=== PATIENT | female | born 1995 | race Caucasian/White ===

== ENCOUNTER 2021-10-08 07:30 | Inpatient (IN) | payer OTHER, SELFPAY ==
[2021-10-08] VITALS (57 sets, daily range): BP systolic 93–142; BP diastolic 53–87; PULSE 67–101; RESP 16; TEMP 36.3–36.9; O2SAT 96–100; BMI 25.7
[2021-10-08] MEDS: Lactated Ringers 1,000 ML 50 ML IV (08:15)
[2021-10-08 08:39] LABS: Absolute Lymphocyte Count 1.98 X10^3/uL (0.83-4.51); Absolute Neutrophil Count 6.2 X10^3/uL (2.0-7.7); Basophil# 0.05 X10^3/uL; Basophil% 0.6 % (0-1); Eosinophil# 0.09 X10^3/uL; Hematocrit 36.1 % (37-47); Hemoglobin 12.2 g/dL (12.0-15.0); Lymphocyte # 1.98 X10^3/ul (0.83-4.51); Lymphocyte % 21.9 % (19-41); Mean Corp Hgb Conc 33.8 g/dL (32-36); Mean Corpuscular Hgb 30.8 pg (27.0-32.0); Mean Corpuscular Volume 91.2 fL (81-99); Mean Platelet Vol. 11.4 fl (6.2-12.0); Monocyte% 6.6 % (0-10); NRBC Flagged by Analyzer 0 % (0-5); Neutrophil # 6.17 X10^3/uL (2.7-7.7); Neutrophil % 68.2 % (47-70); Platelet Count 166 K/mm3 (150-450); RBC Distribution Width CV 12.1 % (11.6-14.6); RBC Distribution Width SD 40.3 fl (35.1-43.9); Red Blood Count 3.96 M/mm3 (4.2-5.4)
[2021-10-08] MEDS: Oxytocin 30 units/NS 500 ml 30 UNITS/500 ML IV.SOLN IV (08:50)
--- NOTE | 2021-10-08 09:49 | PCM.HP.BLA ---
History and Physical Date of Admission: 10/08/21 OG ANTEPARTUM RECORD - HISTORY AND PHYSICAL (10/08/2021) Name: DENNYS PALACIOS History of this : This is a 26 year old [id number] presents at 40 wks + 1 days gestation presents for elective induction. OB Physician: Delonte Gramajo MD [place]'s Physician: [facility] ...................................................................... : 1995 Age: 26 Address: [address] [place] [address] Phone: ([phone] Insurance Carrier: [employer] [id number] Emergency Contact: OVIDIO PHILIP [phone] ...................................................................... Final CAROLYN: 10/07/21 By Ultrasound: 6 weeks 1 day PARITY: (G-Total Pregnancies P-Fullterm,Premature,Induced AB,Spont AB, Ectopics, Multiple,Living) CAROLYN CONFIRMATION: Final CAROLYN: 10/07/21 OB PROBLEM LIST: ALLERGIC TO PENICILLINS AND STEROIDS. Cause rash. 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 Plan to return in 2021. PNC in [facility] and [place] ALLERGIES: Cortisone Generalized rash Penicillins Rash MEDICATIONS: azithromycin 250 mg tablet 1 po today then 1 daily until gone 28 mg iron-800 mcg tablet One pill by mouth once a day Vitamin C 1,000 mg tablet One pill by mouth once a day Vitamin D3 50 mcg (2,000 unit) capsule One pill by mouth once a day SOCIAL HISTORY: Smoking - Never Alcohol Use - None Diet - balanced Diet, Drinks oat milk. Occ tea and Water intake- 120 oz. Lifestyle - recent relocation Exercise - Enc to walk 15-30 min daily Employer - [employer] Job Description - missionary worker Illicit Drug Use - None Sexual Activity - Place of - [place] Hours Worked - varies Spouse-Sig Other Name - Ovidio Spouse-Sig Other Occupation - missionary worker Spouse-Sig Other Phone No - [phone] Children Name(s) - Belinda PRIOR DELIVERY HISTORY DEL DATE GEST LAB WT LB WT OZ TYPE ANES LABOR TX 23 Apr 11 39 12 7 1 Vag Epidural No ANTEPARTUM FLOW CHART VISIT RTC FU F F UT U U DATE WK MD WKS HT PN HR M SS BP ED WT UT GL D EF ST __ ____ ___ __ __ ___ __ __ __ ___ __ __ __ ___ __ Sep JMW 6 38 V + + 128/80 0 166 - - [address] Sep JMW 1 37 V + + 120/74 0 163 - - S Sep JMW 1 37 V + + 109/76 0 162 ne ne Aug M 1 36 V + + 110/72 0 165 - - 18 Nov 36 JMW 1 36 V + + 106/74 0 162 - - 1 25 P ANTEPARTUM NOTE(S): Oct 06 2021: doing well, Good FM, induce per request Sep 29 2021: see note, Good FM Sep 22 2021: Good FM Sep 15 2021: Low Pressure, Good FM Sep 09 2021: GBS Today, LARC form signed,GoodFM COMPREHENSIVE ANTEPARTUM NOTE(S): Oct 08 2021: Scheduled for Induction for 10/08/21 with KATHY. Questions answered and consents signed. Spoke with Katya. JODI Oct 06 2021: Dennys is 39w6d positive movement. no edema. irregular contractions. She states she is doing well and would like to have her membranes sweeped today. BR Sep 29 2021: Dennys is here today for PNV. She is 38w6d, postive movement (States baby is less active but believes baby may just be runing out of room.) Pt reports some irregular contractions. Dennys also is concerned she may have a sinus infection. She tried mucinex with no releif. Her symptoms are green nasal drainage. Post nasal drip that causes her to have a sore throat. She is wondering if there is Sep 22 2021: Dennys is here w her at 37.6 w gest. feeling well. Baby active. First del at [facility] but she has seen the [facility] WP informational video. DRC. Sep 15 2021: No complaints. Preregistered already. Labor, ROM, FM precautions. GBS neg Sep 14 2021: H taken to OB. tkg Sep 09 2021: Dennys presents here today with spouse(Ovidio) for PNV as transfer of care from [facility] [place] and [place] to here. Presents at 36 weeks and plans at [facility] with CAROLYN of 10-07-21. GBS to be done today and LARC form signed and declined today in our Office. Good FM and reports occasional [place] Xie. Genetic screening forms filled out and all declined. JODI Aug 31 2021: TELEHEALTH NOB VISIT-- Dennys is a 26 yo G 2 P 1 with CAROLYN 10-07-21 planning a vag del at [facility] probably with an epidural using [facility] [place] for post disch ped care. Her is Ovidio. They have a 17 mo old daughter, Belinda born in [place] after a 12 hour labor and very short second stage. Dennys had an uneventful with her. They are missionary workers to [place] REVIEW OF SYSTEMS: GENERAL - Denies fever, or chills SKIN - Denies rash, new skin lesions, or change in moles EYES - Denies blurred vision, or change in visual acuity EARS - Denies ear pain, or difficulty hearing NOSE - Denies nasal congestion, discharge, or bleeding MOUTH - Denies sore throat, or difficulty swallowing NECK - Denies pain or swelling RESPIRATORY - Denies shortness of breath, cough, wheezing CARDIOVASCULAR - Denies palpitations, chest pain, orthopnea, PND, peripheral edema, syncope or claudication GASTROINTESTINAL - Denies nausea, vomiting, diarrhea, constipation, Denies abdominal pain, melena and or bright red blood GENITOURINARY - Denies dysuria, frequency of urination, urgency, or hesitancy MUSCULOSKELETAL - Denies joint or muscle pain, or back pain NEUROLOGICAL - Denies localized numbness, weakness, or tingling PSYCHIATRIC - Denies depression, anxiety, substance abuse or suicide attempts ENDOCRINE - Denies heat or cold intolerance, weight loss or gain, increasing thirst HEMATO-IMMUNOLOGIC - Denies easy bruising, bleeding, oral ulcerations or recurrent infections GENETICS SCREENING: Age 35+ years: No Thalassemia: No Neural Tube Defect: No Down Syndrome: No ZARINA-SACHS: No Sickle Cell Disease: No Hemophilia: No Musc. Dystrophy: No Cystic Fibrosis: No-declines screening Alli Chorea: No Mental Retardation: No Fragile X: No Other genetic: No Other defects: No SABs/still births: No Drugs since LMP: No INFECTION HISTORY: High risk AIDS: No High risk Hepatitis: No Exposed to TB: No Exposed to Herpes: No Rash/viral illness since LMP: No History of STD: No MENSTRUAL HISTORY: *Menses Regularity: RegularFrequency: monthlyBCP's at Conception: NoMenarche (Age Onset): 14* PAST SUMMARY: PARITY: 1. Total Pregnancies............ 2 2. Full Term Pregnancies........ 1 3. Premature.................... 0 4. Abortions - Induced.......... 0 5. Abortions - Spontaneous...... 0 6. Ectopics..................... 0 7. Multiple Births.............. 0 8. Living Children.............. 1 PAST #1: Date of :.................. 04/14/20 Gestation Weeks:................ 39 Length of labor(hours):......... 12 Sex:............................ F Weight-lbs:............... 7 Weight-oz:................ 1 Type of Delivery:............... Vag Type of Anesthesia:............. Epidural Place of Delivery:.............. [place] Treatment of Labor?:.... No Comment: ING HERNIA PHYSICAL EXAMINATION General Appearence: 26 yo female in no acute distress Vital Signs: AF, VSS Heart: RRR without rubs or gallops Lungs: CTA x 2 Breasts: deferred Abdomen: gravid Pelvis: Cervix: Presentation: cephalic Station: Fetus: Size: AGA Movement: present Heart: present LAB TEST(S) ORDERED SINCE:01/10/21 10/08/2021 TYPE AND SCREEN 10/08/2021 CBC W/DIFF, AUTOMATED 09/14/2021 TEST CODE CHANGE 09/14/2021 STREP GP B CULTURE 08/30/2021 PAP Smear 08/30/2021 Panel-Thyroid 08/30/2021 Initial OB Labs 08/30/2021 GC-Chlamydia 08/30/2021 CBC w/Diff 08/30/2021 36+ Week Labs 08/30/2021 24-35 Week Labs == ==== Order Observation Description Value Ref_Range A* Site == ==== Labor [facility]~[address] [place], [address]~ TYPE AND SCRE AB SCREEN GEL NEGATIVE ML CBC W/DIFF, AUT NOTE BLANCO CBC W/DIFF, AUT WBC 9.0 K/mm3 4.4-11.0 ML CBC W/DIFF, AUT RBC 3.96 M/mm3 4.2-5.4 L ML CBC W/DIFF, AUT HGB 12.2 g/dL 12.0-15.0 ML CBC W/DIFF, AUT HCT 36.1 37-47 L ML CBC W/DIFF, AUT MCV 91.2 fL 81-99 ML CBC W/DIFF, AUT MCH 30.8 pg 27.0-32.0 ML CBC W/DIFF, AUT MCHC 33.8 g/dL 32-36 ML CBC W/DIFF, AUT RDW CV 12.1 11.6-14.6 ML CBC W/DIFF, AUT RDW SD 40.3 fl 35.1-43.9 ML CBC W/DIFF, AUT PLT 166 K/mm3 150-450 ML CBC W/DIFF, AUT MPV 11.4 fl 6.2-12.0 ML CBC W/DIFF, AUT NEUT% 68.2 47-70 ML CBC W/DIFF, AUT LY% 21.9 19-41 ML CBC W/DIFF, AUT MONO% 6.6 0-10 ML CBC W/DIFF, AUT EO% 1.0 0-5 ML CBC W/DIFF, AUT BASO% 0.6 0-1 ML CBC W/DIFF, AUT IG% 1.700 0.0-0.9 H ML IG% - Immature Granulocytes (promyelocytes, myelocytes and metamyelocytes) > 1% indicates that a LEFT SHIFT is Present. CBC W/DIFF, AUT ABSOLUTE NEUT 6.2 X10 3/uL 2.0-7.7 ML CBC W/DIFF, AUT ABSOLUTE LYMPH 1.98 X10 3/uL 0.83-4.51 ML CBC W/DIFF, AUT NUCLEATED RBC 0 0-5 ML STREP GP B CULT STREP GP B CULTURE Negative Negative LC_CB Centers for Disease Control and Prevention (CDC) and [place] [employer] of [employer]stetricians and Gynecologists (ACOG) guidelines for prevention of group B streptococcal (GBS) disease specify co-collection of a vaginal and rectal swab specimen to maximize sensitivity of GBS detection. Per the CDC and ACOG, swabbing both the lower vagina and rectum substantially increases the yield of detection compared with sampling the vagina alone. . Penicillin G, ampicillin, or cefazolin are indicated for intrapartum prophylaxis of GBS colonization. Reflex susceptibility testing should be performed prior to use of clindamycin only on GBS isolates from penicillin-allergic women who are considered a high risk for anaphylaxis. Treatment with vancomycin without additional testing is warranted if resistance to clindamycin is noted. TEST CODE DEAN TEST CODE CHANGE LC_CB Please note that the Microbiology test code was changed to reflect the specimen source or transport received. PAP Smear PAP Test normal Normal 24-35 Week Labs HCT/HGB 12.6/36.6 Panel-Thyroid T-4 (thyroxine), Total 0.87 Panel-Thyroid Thyroid Stimulating Horm 2.560 micro IU/ml 0.4-5.5 GC-Chlamydia Chlamydia negative Negative GC-Chlamydia GC negative No Growth CBC w/Diff White Blood Cell Count 8.22 thous/mcl 3.8-10.8 CBC w/Diff Red Blood Cell Count 3.51 mill/mcl 3.90-5.20 CBC w/Diff Hemoglobin 11.3 g/dl 12.0-15.6 CBC w/Diff Hematocrit 32.4 % 35.0-46.0 CBC w/Diff Platelet Count 159 thous/mcl 150-450 CBC w/Diff Neutrophils 72.2 % CBC w/Diff Lymphocytes 29.6 % CBC w/Diff Monocytes 6.9 % CBC w/Diff Eosinophils 0.8 % CBC w/Diff Basophils 0.9 % Initial OB Labs Hemoglobin Initial OB 11.3 Initial OB Labs Hematocrit Initial OB 32.4 Initial OB Labs PLT 159 Initial OB Labs Rubella 149 Immune immune Initial OB Labs HBsAg negative Negative 36+ Week Labs Group B Strep negative Negative Date is 2019 O POSITIVE == ==== Impression /Plan: 40 wks + 1 days intrauterine for elective induction. Plan pitocin and AROM. Preparations in progress for delivery.
[2021-10-08] MEDS: Lactated Ringers 500 ML 999 ML IV (12:44)
[2021-10-08] MEDS: fentaNYL-bupivacaine (epidural) 100 ML BAG EPIDURAL (13:56)
[2021-10-08] MEDS: Lactated Ringers 1,000 ML 200 ML IV (16:57)
[2021-10-08] MEDS: Oxytocin 30 units/NS 500 ml 30 UNITS/500 ML IV.SOLN 334 UNITS IV (18:46)
--- NOTE | 2021-10-08 18:58 | EX.PCM.OBRPT ---
Maternal Data Information Final CAROLYN: 10/07/21 Gestational age: 40 weeks 1 day Vaginal Delivery Maternal Presentation Maternal Presentation: Elective Induction Type of Induction: Pitocin and Amniotomy Operative Information Date of Procedure: 10/08/21 Pre-Operative Diagnosis: IUP Post-Operative Diagnosis: IUP Surgery / Procedure Performed: Spontaneous Vaginal Delivery Type of Anesthesia: Epidural Drain: Abreu to straight drain Estimated Blood Loss: 250 cc Fluids Replaced: Crystalloid Findings Description of Procedure: Viable male infant with Apgars of 8/9 from an occiput anterior presentation with clear amniotic fluid and normal three-vessel placenta. Cord around the neck x1 tight and around the arms. Nuchal right arm. No episiotomy. First-degree midline laceration repaired with 3-0 Rapide suture under epidural. Sponges okay. Delivery physician: Delonte Gramajo MD. Presentation: Vertex Amniotic Membrane Rupture Type: Artificial Amniotic Fluid Description: Clear Placental Delivery Description: Spontaneous Placenta Disposition: [facility] Cord Vessel Description: 3 Vessels Cord Entanglement: Around neck x 1, tight Infant A Gender: Male (1 minute): 8 (5 minute): 9 Post Vaginal Delivery Medications Given After Delivery: IV Pitocin Episiotomy Description: None Laceration: Midline and 1st degree Complication Complications: None
--- NOTE | 2021-10-08 22:55 | NURSING ---
Addendum entered by Valeria Hernandez 10/08/21 23:01: pt vitals were then taken and were WNL Original Note: Pt felt like her epidural wore off enough to get up and pee. this nurse and another nurse helped pt to edge of bed and let legs dangle, pt felt good so then we stood pt up. She felt a little lightheaded so we sat her back down, we got a bedside commode for pt as she had to pee, pt urine output was 600ml, pt then got lightheaded again and then nauseous so she was then assited to bed
[2021-10-09] VITALS (11 sets, daily range): BP systolic 116–131; BP diastolic 55–78; PULSE 76–96; RESP 16; TEMP 36.4–36.8; O2SAT 97
--- NOTE | 2021-10-09 10:36 | PCM.PN.OB ---
Subjective Subjective Patient without complaints. Breast-feeding going well. Minimal vaginal bleeding reported. Wants to go home today if baby is able to go. Objective Data Objective Data Vital Signs: Vital Signs Temp Pulse Resp BP Pulse Ox 98.1 F 96 16 131/72 H 97 10/09/21 09:02 10/09/21 09:03 10/09/21 08:45 10/09/21 09:03 10/09/21 08:45 Oxygen Delivery Method Room Air Weight: 164 lb 7.437 oz Body Mass Index (BMI) 25.7 Intake & Output: Intake and Output for Last 24 Hours 10/07/21 10/08/21 10/09/21 23:59 23:59 23:59 Intake Total 3752.87 / 3752.87 Output Total 2550 / 2550 500 / 500 Balance 1202.87 / 1202.87 -500 / -500 Lab / Micro Data Result Diagrams: 10/08/21 08:15 Micro: Microbiology 10/08/21 15:25 Nasal Secretion SARS-CoV-2 Antigen (Rapid) - Final Assessment & Plan (1) Spontaneous vaginal delivery: PLAN: Doing well day #1 status post routine spontaneous vaginal delivery. Will release to home with routine instructions if baby is able to go.
--- NOTE | 2021-10-09 10:37 | PCM.DC ---
Discharge Instructions Diet Discharge Diet: No restrictions Activity Discharge Activity: May Drive (In 1 to 2 days if not taking narcotic pain medication), May Shower and May Take a Tub Bath May resume sexual activity in: 4-6 weeks Additional Activity Instructions:: Nothing in the vagina for 4-6 weeks. You may return to work/school in 6 weeks. Dressing / Incision Call your doctor if you observe: Fever of 101 or Higher, Inability to urinate, Inability to have a bowel movement and Using more than 1 pad per hour Follow Up Care Please Follow Up With: Delonte Gramajo MD When: Call [phone] to make an appointment with your doctor in 6 weeks. Test Results: Test results from this visit will be discussed in further detail at your follow-up appointment, if applicable. Discharge Plan Admission Admit Date/Time: 10/08/21 07:30 Primary Reason for Your Visit: Vaginal Delivery Attending Provider: Delonte Gramajo Primary Care Provider: Care Physician,Lorena Primary Discharge Orders/Prescriptions Prescriptions: No Action Prenatabs FA 1 tab PO.IVFORM DAILY RF: 0 Referrals / Follow Up: Care Physician,No Primary [Primary Care Provider] - Disposition Disposition (needs filled in before D/C Order can be placed): Home, Self Care
[2021-10-09] MEDS: Ibuprofen 600 MG Tablet PO (16:26)
== END 2021-10-09 19:35 | disposition home or self-care (01) | DRG 807 ==
PROVIDERS: Admitting Provider Obstetrics & Gynecology; Referring Provider Obstetrics & Gynecology; Visit Provider Obstetrics & Gynecology
DX: O69.1XX0 Labor and delivery complicated by cord around neck, with compression, not applicable or unspecified (principal); O70.0 First degree perineal laceration during delivery; Z37.0 Single live birth; Z3A.40 40 weeks gestation of pregnancy
CPT/HCPCS: 59025; 59050; 85025; 86850; 86900; 86901; 87426; 99218; J7120; G0378